=== PATIENT | male | born 1985 | race Caucasian/White ===

== ENCOUNTER 2016-09-28 07:33 | Emergency (ER) | payer OTHER | END 2016-09-28 09:25 | disposition home or self-care (01) | LOC: ER1 07:33 | DX: T15.01XA Foreign body in cornea, right eye, initial encounter (principal); F17.210 Nicotine dependence, cigarettes, uncomplicated; W22.8XXA Striking against or struck by other objects, initial encounter; Z23 Encounter for immunization; F32.9 Major depressive disorder, single episode, unspecified; Z79.899 Other long term (current) drug therapy | CPT/HCPCS: 90471; 90715; 99283 ==

== ENCOUNTER 2016-10-23 11:20 | Emergency (ER) | payer OTHER | END 2016-10-23 12:55 | disposition home or self-care (01) | LOC: ER1 11:20 | DX: J06.9 Acute upper respiratory infection, unspecified (principal); R09.1 Pleurisy; F17.210 Nicotine dependence, cigarettes, uncomplicated | CPT/HCPCS: 93005; 99284 ==

== ENCOUNTER 2017-01-03 11:00 | Emergency (ER) | payer OTHER ==
[2017-01-03 11:27] LABS: HEMOGLOBIN 14.3 gm/dl (14.0-17.5); RED BLOOD COUNT 4.57 M/UL (4.20-5.50); WHITE BLOOD COUNT 11.3 K/UL (4.5-11.0)
[2017-01-03 11:53] LABS: BUN/CREATININE RATIO 12 (0-10)
== END 2017-01-03 13:50 | disposition home or self-care (01) ==
LOC: ER1 11:00
PROVIDERS: Family Medicine
DX: R00.2 Palpitations (principal); F17.200 Nicotine dependence, unspecified, uncomplicated; F32.9 Major depressive disorder, single episode, unspecified; Z79.899 Other long term (current) drug therapy
CPT/HCPCS: 36415; 71010; 80053; 82550; 82553; 83874; 84443; 84484; 85025; 93005; 99285